=== PATIENT | male | born 1990 | race Caucasian/White ===

== ENCOUNTER 2017-01-10 22:07 | Emergency (ER) | payer OTHER ==
[~2017-01-10] VITALS: Ht 180.3 cm; Wt 70.3 kg
[~2017-01-10 22:07] MED LIST: PREDNISONE20 MG PO; PROAIR HFA8.5 GM INH; PROVENTIL HFA6.7 GM INH
[2017-01-11] MEDS ORDERED: TRAMADOL HCL50 MG PO (01:23)
[2017-01-11] MEDS ORDERED: CEPHALEXIN500 MG PO (01:23)
== END 2017-01-11 01:51 | disposition home or self-care (01) ==
LOC: ED 22:07
DX: K08.89 Other specified disorders of teeth and supporting structures (principal); J45.909 Unspecified asthma, uncomplicated; F17.200 Nicotine dependence, unspecified, uncomplicated
CPT/HCPCS: 99283

== ENCOUNTER 2017-02-26 14:37 | Emergency (ER) | payer OTHER ==
[~2017-02-26] VITALS: Ht 180.3 cm; Wt 68.0 kg
[~2017-02-26 14:37] MED LIST changes: +CEPHALEXIN500 MG PO; +TRAMADOL HCL50 MG PO
== END 2017-02-26 14:53 | disposition home or self-care (01) ==
LOC: ED 14:37
DX: R21 Rash and other nonspecific skin eruption (principal); Z00.8 Encounter for other general examination

== ENCOUNTER 2017-05-14 14:30 | Emergency (ER) | payer SELFPAY ==
[~2017-05-14] VITALS: Ht 177.8 cm; Wt 68.0 kg
[2017-05-14] MEDS ORDERED: VENTOLIN HFA18 GM INH (14:43)
== END 2017-05-14 14:50 | disposition home or self-care (01) ==
LOC: ED 14:30
DX: K08.89 Other specified disorders of teeth and supporting structures (principal)

== ENCOUNTER 2024-01-01 11:21 | Emergency (ER) | payer MEDICAID ==
[~2024-01-01] VITALS: Ht 180.3 cm; Wt 82.3 kg
[~2024-01-01 11:21] MED LIST changes: +FLOVENT HFA10.6 GM INH; +TRIAMCINOLONE A15 G1 TOP; +VENTOLIN HFA18 GM INH
--- OUTSIDE RECORDS SUMMARY | 2024-01-01 11:22 | XMS ---
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 Adalberto VISIT COUNT (12 MO.) 4 [facility] [address] [place] [address] Edilma Burgess M.[facility] TOTAL 6 NOTE: Visits indicate total known visits. ED/UCC VISIT TRACKING (12 MO.) 01/01/2024 11:21 TAYLA Mc [place] TYPE: Emergency COMPLAINT: - SKIN PROBLEM 12/16/2023 23:39 Edilma BURGESS OR TYPE: Emergency DIAGNOSES: - Mild intermittent asthma with (acute) exacerbation - Shortness of Breath - SOB 12/01/2023 14:43 Sherwin AGUSTIN OR TYPE: Emergency DIAGNOSES: - Unspecified asthma with (acute) exacerbation - asthma - Shortness of Breath 09/26/2023 16:49 Sherwin [facility] TYPE: Emergency DIAGNOSES: - Unspecified asthma with (acute) exacerbation - Shortness of Breath - sob 09/25/2023 17:26 Sherwin [facility] TYPE: Emergency DIAGNOSES: - Unspecified asthma with (acute) exacerbation - Asthma - Shortness of Breath 2023 07:27 Sherwin [facility] [place] TYPE: Emergency DIAGNOSES: - Chest pain, unspecified - Wheezing - rib pain INPATIENT VISIT TRACKING (12 MO.) 12/01/2023 14:43 Sherwin [facility] OR TYPE: Medical Surgical DIAGNOSES: - Unspecified asthma with (acute) exacerbation 09/26/2023 16:49 Sherwin [facility] TYPE: Cardiology DIAGNOSES: - Unspecified asthma with (acute) exacerbation [id number]
[2024-01-01] MEDS ORDERED: PULMICORT0.25 MG/2 INH (11:38)
[2024-01-01] MEDS ORDERED: PREDNISONE20 MG PO ×2 (11:38→13:21)
[2024-01-01] MEDS ORDERED: clindamycin HCL 300 MG CAP PO ONE (12:00)
[2024-01-01] MEDS ORDERED: predniSONE 20 MG TAB PO ONE (12:00)
[2024-01-01] MEDS ORDERED: TRIMETHOPRIM/SULFAMETHOXAZOLE 1 EA TAB PO ONE (12:00)
[2024-01-01] MEDS ORDERED: ALBUTEROL/IPRATROPIUM 3 ML NEB INH ONE (12:00)
[2024-01-01] MEDS ORDERED: BACTRIM DS TAB1 EACH PO (13:21)
[2024-01-01] MEDS ORDERED: VENTOLIN HFA18 GM INH (13:21)
[2024-01-01] MEDS ORDERED: CLEOCIN HCL300 MG PO (13:21)
[2024-01-01 13:33] VITALS: BP 136/98
[2024-01-11] MEDS ORDERED: PREDNISONE20 MG PO (11:02)
[2024-01-11] MEDS ORDERED: VENTOLIN HFA18 GM INH (11:04)
[2024-01-11] MEDS ORDERED: PULMICORT0.25 MG/2 INH (11:05)
== END 2024-01-01 13:33 | disposition home or self-care (01) ==
LOC: ED 11:21
DX: L30.9 Dermatitis, unspecified (principal); J45.901 Unspecified asthma with (acute) exacerbation; L08.9 Local infection of the skin and subcutaneous tissue, unspecified; F17.200 Nicotine dependence, unspecified, uncomplicated; Z79.51 Long term (current) use of inhaled steroids; Z79.52 Long term (current) use of systemic steroids; Z79.899 Other long term (current) drug therapy
CPT/HCPCS: 94640; 99284; A9270; J7512

== ENCOUNTER 2024-01-15 21:01 | Inpatient (IN) | payer MEDICAID ==
[~2024-01-15] VITALS: Ht 180.3 cm; Wt 88.0 kg
[~2024-01-15 21:01] MED LIST changes: +ALBUTEROL/IPRATROPIUM 3 ML NEB INH SCH; +BACTRIM DS TAB1 EACH PO; +CLEOCIN HCL300 MG PO; +PULMICORT0.25 MG/2 INH
--- OUTSIDE RECORDS SUMMARY | 2024-01-15 21:03 | XMS ---
PreManage Notification: MARIA GUADALUPE NEVAREZ Security Unbundler Events No recent Security Events currently on file CRITERIA MET - 6 ED Visits in 6 Months - Group Notification - [facility] - 2 Visits in 30 Days - [facility] - 3 Facilities in 90 Days CARE PROVIDERS [facility], Clinic[facility]Center: [facility] PHONE: Unknown Kendall has no Care Guidelines for this patient. E.Eleni VISIT COUNT (12 MO.) 4 [facility] TOTAL 8 NOTE: Visits indicate total known visits. ED/UCC VISIT TRACKING (12 MO.) 01/15/2024 21:02 TAYLA Mc OR TYPE: Emergency COMPLAINT: - SOB 01/10/2024 18:56 TAYLA Mc OR TYPE: Emergency COMPLAINT: - SHORTNESS OF BREATH 01/01/2024 11:21 TAYLA Mc OR TYPE: Emergency COMPLAINT: - SKIN PROBLEM DIAGNOSES: - Dermatitis, unspecified - Local infection of the skin and subcutaneous tissue, unspecified - terminal press operator (current) use of inhaled steroids - care home (current) use of systemic steroids - Nicotine dependence, unspecified, uncomplicated - Other alf (current) drug therapy - Rash and other nonspecific skin eruption - Unspecified asthma with (acute) exacerbation 12/16/2023 23:39 Edilma [facility]GESS [facility] TYPE: Emergency [...] rib pain INPATIENT VISIT TRACKING (12 MO.) 01/10/2024 21:30 TAYLA Mc [place] TYPE: Medical Surgical COMPLAINT: - ASTHMA EXACERBATION DIAGNOSES: - Acquired absence of other specified parts of digestive tract - Allergic rhinitis, unspecified - terminal press operator (current) use of antibiotics - Nicotine dependence, cigarettes, uncomplicated - Other alf (current) drug therapy - Psoriasis, unspecified - Unspecified asthma with (acute) exacerbation 12/01/2023 14:43 [facility] TYPE: Medical Surgical DIAGNOSES: - Unspecified asthma with (acute) exacerbation 09/26/2023 16:49 Sherwin [facility] TYPE: Cardiology DIAGNOSES: - Unspecified asthma with (acute) exacerbation [id number]
[2024-01-15 21:10] LABS: BASOPHILS 0.8 % (0-2); EOSINOPHILS 3.7 % (0-6); HEMATOCRIT 46.4 % (35.0-50.0); HEMOGLOBIN 16.1 g/dL (12.0-18.0); MCH 31.2 (27-36); MCHC 34.8 g/dl (30-36); MCV 89.9 fl (81-99); MONOCYTES 10.2 % (0-12); NEUTROPHILS 51.3 % (39-80); PLATELET COUNT 337 K/uL (140-440); RBC 5.16 M/ul (4.3-5.7)
[2024-01-15] MEDS ORDERED: ALBUTEROL SULFATE 0.5% 2.5 MG/0.5 ML VIAL INH ONE (21:15)
[2024-01-15 21:25] LABS: ALBUMIN 4.1 g/dL (3.4-5.0); ALBUMIN/GLOBULIN RATIO 1.08 (1.1-2.4); ANION GAP 13.1 (7-21); BILIRUBIN, TOTAL 0.3 ng/dL (0.2-1.0); BUN/CREATININE RATIO 15.38 (6.0-28.6); CALCIUM 9.4 mg/dL (8.5-10.1); CREATININE, SERUM 1.04 mg/dL (0.70-1.30); POTASSIUM 4.1 mmol/L (3.5-5.1); PROTEIN, TOTAL 7.9 g/dL (6.4-8.2)
[2024-01-15] MEDS ORDERED: methylPREDNISolone SOD SUCC 125 MG/2 ML VIAL IV ONE (22:00)
[2024-01-15 23:11] VITALS: BP 147/94
[2024-01-15 23:15] VITALS: BP 149/86
[2024-01-15] MEDS ORDERED: ALBUTEROL SULFATE 0.083% 3 ML VIAL INH PRN (23:15)
[2024-01-15] MEDS ORDERED: ALBUTEROL/IPRATROPIUM 3 ML NEB ONE (23:17)
[2024-01-15] MEDS ORDERED: MELATONIN 3 MG TAB PO ONE (23:45)
--- NOTE | 2024-01-15 23:51 | NUR ---
PT TO FLOOR WITH ED RN VIA AT APPROX 2310. PT ALERT AND ORIENTED. ABLE TO TRANSFER SELF TO BED. BEDSIDE REPORT RECEIVED. ORDERS RECEIVED. VS OBTAINED. CPOX PLACED. SpO2 99% ON RA. RR 18. DRY COUGH NOTED. WHEEZE AUSCULTATED THROUGHOUT. RT IN FOR BREATHING TX. PT REQUESTING SOMETHING FOR SLEEP. CALLED. NEW TELEPHONE ORDERS RECEIVED VERIFIED WITH READBACK METHOD. SANDWICH BOX PROVIDED PER REQUEST. TO STAY THE NIGHT. LINENS PROVIDED. PT DENIES QUESTIONS OR CONCERNS. CALL LIGHT IN REACH.
[2024-01-16] VITALS (11 sets, daily range): BP systolic 138–149; BP diastolic 77–88
--- NOTE | 2024-01-16 02:40 | NUR ---
PT RESTING WITH EYES CLOSED. AWAKENS EASILY. VS AND I&O OBTAINED. SpO2 95% ON RA. RESPIRATIONS EVEN. DRY COUGH NOTED. WHEEZE HEARD THROUGHOUT. PT REPORTS SOB. PRN NEB TX ADMIN PER EMAR. NEW IV PLACED IN RIGHT FOREARM PER PT REQUEST. PT CONNOR WELL. IV IN LEFT FOREARM DC'D WNL PER PT REQUEST. TIP INTACT. NO FURTHER NEEDS. CALL LIGHT IN REACH.
--- NOTE | 2024-01-16 04:30 | NUR ---
PT RESTING IN BED WITH EYES CLOSED. RESPIRATIONS EVEN. SpO2 96% ON RA. HR 80'S.
[2024-01-16] MEDS ORDERED: methylPREDNISolone SOD SUCC 40 MG/ML VIAL IV SCH (06:00)
--- NOTE | 2024-01-16 06:26 | NUR ---
PT RESTING IN BED WITH EYES CLOSED. AWAKENS EASILY. VS AND I&O OBTAINED. NEW IV PLACED IN RIGHT FOREARM X 1 ATTEMPT PT ACCIDENTALLY PULLED PREVIOUS ONE. SCHEDULED MEDS ADMIN. PT REPORTS FEELING "LESS WHEEZY, BUT STILL TIGHT" OCCASIONAL DRY COUGH NOTED. RT IN ROOM TO ADMIN NEB TX. NO FURTHER NEEDS. REMAINS IN ROOM. CALL LIGHT IN REACH.
[2024-01-16 06:56] LABS: BASOPHILS 0.2 % (0-2); HEMOGLOBIN 15.2 g/dL (12.0-18.0); LYMPHOCYTES 3.2 % (24-44); MCH 30.6 (27-36); MCHC 33.8 g/dl (30-36); MCV 90.4 fl (81-99); MONOCYTES 1.2 % (0-12); NEUTROPHILS 95.4 % (39-80); PLATELET COUNT 304 K/uL (140-440); RBC 4.97 M/ul (4.3-5.7); RDW 13.8 (10.5-15.0)
[2024-01-16 07:07] LABS: ANION GAP 19.5 (7-21); BUN/CREATININE RATIO 12.59 (6.0-28.6); CALCIUM 8.9 mg/dL (8.5-10.1); CREATININE, SERUM 1.27 mg/dL (0.70-1.30); MAGNESIUM 2.2 mg/dL (1.8-2.4); POTASSIUM 4.5 mmol/L (3.5-5.1)
--- NOTE | 2024-01-16 07:51 | NUR ---
Previous hospitalization was placed on list and clinic notified of need for PCP. No appointment made by clinic. Chart resent and clinic renotified via email this AM of need for PCP to help prevent hospitalizations.
--- NOTE | 2024-01-16 07:59 | NUR ---
PT RESTING EYES CLOSED AT TIME OF SHIFT REPORT, ON THE COUCH. PT AWAKE NOW, TALKING WITH HOSPITALIST.
[2024-01-16] MEDS ORDERED: ALBUTEROL/IPRATROPIUM 3 ML NEB INH SCH (08:00)
[2024-01-16] MEDS ORDERED: ACETAMINOPHEN 325 MG TAB PO PRN (08:15)
--- NOTE | 2024-01-16 08:21 | NUR ---
PT SITTING UP IN BED EATING MORNING MEAL DENIES NEEDS OF. PT AGREES ALL HIS QUESTIONS WERE ANSWERED BY DOCTOR.
--- NOTE | 2024-01-16 09:02 | NUR ---
PT TOLERATES BREAKFAST WELL SITTING UP IN BED. DENIES SOB, BREATHING EVEN AND UNLABORED SATS 95% ON RA. TYLENOL ADMINISTERED EARLIER FOR BAUMAN 11/18 RATES IT 05/21 NOW STATES "ITS STARTING TO WORK" PT AGREES TO CALL STAFF FOR INCREASED WORK OF BREATHING OR ANY NEEDS OR CONCERNS
--- NOTE | 2024-01-16 10:15 | NUR ---
PT RESTING EYES CLOSED
[2024-01-16] MEDS ORDERED: VENTOLIN HFA18 GM INH (10:21)
--- NOTE | 2024-01-16 12:36 | NUR ---
PT EATS MOST OF NOON MEAL. HE'S TALKATIVE AND UPBEAT, DENIES ANY DISCOMFORTS OR NEEDS. SATS 94% ON ROOM AIR. GIRLFRIEND REMAINS AT BEDSIDE
--- NOTE | 2024-01-16 12:44 | NUR ---
Patient was alert and visiting with their . Lunch tray was removed and no other cares were requested.
--- NOTE | 2024-01-16 12:44 | NUR ---
PATIENT LIVES IN A HOUSE WITH HIS FIANCE. NO DME. STATES HE DOES NOT DRIVE, FIANCE OR [place] FOR MEDICAL APPOINTMENTS. SHOULD HAVE HIS LICENSE IN A COUPLE OF MONTHS, PER PATIENT. NO PCP, SEE PREVIOUS CM NOTE. NO FINANCIAL ISSUES. DENIES ANY OTHER NEEDS FROM CASE MANAGEMENT AT THIS TIME. INFORMED STAFF WILL UPDATE HIM REGARDING PCP SOON AN APPOINTMENT IS MADE. VERBALIZES UNDERSTANDING.
--- NOTE | 2024-01-16 12:58 | NUR ---
VISITED DURING SPIRITUAL CARE ROUNDS. PT SUPPORTED BY CONVENTION MANAGER IN ROOM. BOTH DENIED IMMEDIATE NEEDS. HARVEST CONTRACTOR PROVIDED SUPPORTIVE PRESENCE, HOSPITALITY, PRAYER. PT AND CONVENTION MANAGER EXPRESSED GRATITUDE.
--- NOTE | 2024-01-16 13:10 | NUR ---
Patient called asking for a new SpO2 finger monitor. is in the room visiting. Nothing else was requested.
--- NOTE | 2024-01-16 14:25 | NUR ---
PT AMBULATES THE HERRERA THEN RETURNS TO REST IN BED. STATES HE HAD PLANNED TO SHOWER AFTERWARD BUT HE BECAME SOB AND SWEATY SO DECIDED TO REST FOR A TIME. SATS ARE 94% ON ROOM AIR AT THIS TIME BREATHING EVEN AND UNLABORED
--- NOTE | 2024-01-16 14:28 | NUR ---
After finishing their breathing treatment, patient's vitals were taken and fresh ice was given to the patient's . Nurse was in room working. No other cares were requested.
--- NOTE | 2024-01-16 15:59 | NUR ---
Urinal was used and emptied. No other cares were requested.
--- NOTE | 2024-01-16 16:18 | NUR ---
PT RESTING EYES CLOSED NEEDED ITEMS IN REACH
--- NOTE | 2024-01-16 17:53 | NUR ---
PT RESTING SUPINE AFTER EVENING MEAL GIRLFRIEND PRESENT IN THE ROOM. BREATHING EVEN AND UNLABORED DENIES NEEDS OF
[2024-01-16] MEDS ORDERED: steroid inhaler (18:02)
--- NOTE | 2024-01-16 19:34 | NUR ---
REPORT RECEIVED FROM DAY SHIFT RN. PT LYING IN BED ALERT AND ORIENTED. DENIES NEEDS. WHITE BOARD UPDATED. CALL LIGHT IN REACH.
[2024-01-16] MEDS ORDERED: MELATONIN 3 MG TAB PO PRN (21:00)
--- NOTE | 2024-01-16 21:30 | NUR ---
EVENING ASSESSMENT COMPLETE. SCHEDULED MEDS ADMIN PER EMAR. PT DENIES PAIN OR NAUSEA. NO C/O SOB, STATES "IT JUST FEELS TIGHT" OCCASIONAL DRY COUGH NOTED. EXPIRATORY WHEEZE HEARD THROUGHOUT. RT CALLED FOR BREATHING TX. SpO2 MID TO HIGH 90'S ON RA. PT DENIES FURTHER NEEDS. TO STAY THE NIGHT. CALL LIGHT IN REACH.
[2024-01-17] VITALS (10 sets, daily range): BP systolic 125–157; BP diastolic 57–88
--- NOTE | 2024-01-17 00:24 | NUR ---
PT RESTING IN BED WITH EYES CLOSED. RESPIRATIONS EVEN. SpO2 96% ON RA. HR 80'S. IN ROOM. CALL LIGHT IN REACH.
--- NOTE | 2024-01-17 02:49 | NUR ---
PT RESTING IN BED WITH EYES CLOSED. RESPIRATIONS EVEN. HR 80'S. SpO2 96% ON RA.
--- NOTE | 2024-01-17 04:15 | NUR ---
PT IN BED RESTING WITH EYES CLOSED. SpO2 94% ON RA. HR 80'S.
[2024-01-17 05:55] LABS: BASOPHILS 0.2 % (0-2); HEMATOCRIT 45.4 % (35.0-50.0); LYMPHOCYTES 2.6 % (24-44); MCH 30.1 (27-36); MCV 91.3 fl (81-99); MONOCYTES 5.4 % (0-12); NEUTROPHILS 91.8 % (39-80); PLATELET COUNT 304 K/uL (140-440); RBC 4.97 M/ul (4.3-5.7); RDW 14.1 (10.5-15.0)
[2024-01-17 06:14] LABS: ANION GAP 13.1 (7-21); BUN/CREATININE RATIO 17.34 (6.0-28.6); CALCIUM 9.6 mg/dL (8.5-10.1); CREATININE, SERUM 0.98 mg/dL (0.70-1.30); POTASSIUM 4.1 mmol/L (3.5-5.1)
--- NOTE | 2024-01-17 06:25 | NUR ---
CALL LIGHT ANSWERED. PT REQUESTING BREATHING TX. RT NOTIFIED. AUDIBLE WHEEZE AND DRY COUGH NOTED. SpO2 95% ON RA. RESPIRATIONS EVEN. PT ABLE TO TALK IN FULL SENTENCES. SCHEDULED MEDS ADMIN PER EMAR. AT BEDSIDE. NO FURTHER NEEDS.
--- NOTE | 2024-01-17 07:20 | NUR ---
PT AWAKE RESTING IN BED AT TIME OF SHIFT REPORT. HE STATES HE WOKE UP EARLIER SOB AND NEB "DIDN'T HELP" LUNGS WERE CLEAR IN UPPER YESTERDAY BUT WHEEZY THROUGHOUT TODAY. PT BREATHING AND UNLABORED AT THIS TIME SATS 95% ON RA. AT BEDSIDE
--- NOTE | 2024-01-17 08:02 | NUR ---
PATIENT IN BED AT THIS TIME. CALL LIGHT WITHIN REACH, NO FURTHER NEEDS AT THIS TIME.
[2024-01-17] MEDS ORDERED: methylPREDNISolone SOD SUCC 125 MG/2 ML VIAL IV SCH ×2 (09:00→17:00)
[2024-01-17] MEDS ORDERED: ENOXAPARIN SODIUM 40 MG/0.4 ML SYR SUB-Q SCH (09:00)
--- NOTE | 2024-01-17 09:08 | NUR ---
REVIEWED PLAN OF CARE WITH PT UNDERSTANDING VERBALIZED. HE HAD A GOOD BREAKFAST PLANS TO SHOWER AND AMBULATE TOLERATED LATER. RESTING NOW EYES CLOSED
--- NOTE | 2024-01-17 09:33 | NUR ---
UR CLINICAL REVIEW: [facility] INPT CRITERIA FOR ASTHMA ALL CARE INPT 01/16/24 @ 1244 ORDER MATCHES REG RECORDS FAXED FOR AUTH REVIEW DISCHARGE TO HOME WHEN STABLE 01/18/24
--- NOTE | 2024-01-17 10:52 | NUR ---
PT SITTING UP IN BED EATING A MEAL WITH HIS . BREATHING EVEN AND UNLABORED SATS 94% ON RA. PT COUGH SOUNDS TIGHT AND DRY. HE HAS NO C/O. PLANS TO SHOWER THIS AFTERNOON.
--- NOTE | 2024-01-17 10:53 | NUR ---
PT NOT AVAILBLE FOR VISIT. PROVIDED PRAYER.
[2024-01-17] MEDS ORDERED: PHARMACY RENAL DOSE ADJUSTMENT 1 DOSE MISC PO SCH (12:00)
--- NOTE | 2024-01-17 12:20 | NUR ---
PATIENT IN BED AT THIS TIME. PLAYBACK OPERATOR WENT INTO ROOM FOR PATIENT ROUINDINGS. CALL LIGHT WITHIN REACH, NO FURTHER NEEDS AT THIS TIME.
--- NOTE | 2024-01-17 12:26 | NUR ---
PT RESTING EYES CLOSED IS PRESENT IN THE ROOM
--- NOTE | 2024-01-17 14:39 | NUR ---
PT AND CONTINUE IN THE ROOM, BLINDS DRAWN RESTING SUPINE. PT HAS BEEN ENCOURAGED TO SIT UP IN CHAIR, WALK IN HALLS, SHOWER, AND CHANGE POSITION FREQUENTLY. UNDERSTANDING WAS VERBALIZED.
--- NOTE | 2024-01-17 15:57 | NUR ---
PATIENT IN BED AT THIS TIME. LINE MAINTENANCE TECHNICIAN WENT INTO ROOM TO DO PATIENT ROUNDINGS. RESPIRATORY THERAPIST IN ROOM AT THIS TIME. CALL LIGHT WITHIN REACH, NO FURTHER NEEDS AT THIS TIME.
[2024-01-17] MEDS ORDERED: ALBUTEROL SULFATE 0.5% 2.5 MG/0.5 ML VIAL ONE (16:01)
--- NOTE | 2024-01-17 16:01 | NUR ---
PT REPORTS TO THIS INSET CUTTER THAT HE FEELS HE IS GETTING WORSE AND WOULD LIKE TO DC AND THEN GO TO [facility] TO SEE A SPECIALIST. R/T CALLED FOR TREATMENT AND DR MCGILL NOTIFIED OF PT STATEMENTS. R/T AND DR MCGILL MEET TO COORIDNATE CARE. DR ESTRADA TO PT ROOM
[2024-01-17] MEDS ORDERED: ALBUTEROL SULFATE 0.5% 2.5 MG/0.5 ML VIAL INH ONE (16:30)
[2024-01-17] MEDS ORDERED: MAGNESIUM SULFATE 2 GM/50 ML BAG IV ONE (16:30)
--- NOTE | 2024-01-17 16:45 | NUR ---
PT AGREES TO 1 HR LONG NEB WELL MAG INFUSION. R/T REPORTS BETTER AIR MOVEMENT AFTER NEB, PT AGREES HE FEELS "A LITTLE" BETTER. SATS HAVE REMAINED AROUND 95% SINCE FIRST C/O SOB. IV SITE IS ACHING WITH INFUSION NEW LINE IS BEING PUT IN AT THIS TIME.
--- NOTE | 2024-01-17 16:50 | NUR ---
DR MCGILL BACK TO ROOM REPORTS TO THE PT HE SPOKE WITH A FIELD EDUCATION DIRECTOR TO COORDINATE CARE AND INQUIRE ABOUT TRANSFER. HE ADVISED HE WILL INCREASE STEROIDS AGAIN ON ADVISE OF FIELD EDUCATION DIRECTOR AND PURSUE TRANSFER ALONG WITH BRONCHODIALATORS. PT IS IN AGREEMENT ALL QUESTIONS ANSWERED
--- NOTE | 2024-01-17 17:50 | NUR ---
PT REPORTS HEADACHE AND TYLENOL ADMINISTERED. CHECKING BACK PT STATES HIS HEAD STILL HURTS. DESCRIBES THE PAIN UPPER NOSE AND EYE ORBIT NEAR BROWS. WARM PACK APPLIED. PT AGREES BREATHING IS BETTER AT THIS TIME. SATS CONTINUE AT 95% BREATHING UNLABORED. NO TRANSFER IS AVAILABLE AT THIS TIME PT NOTIFIED NEBS WILL CONTINUE Q2 FOR NOW
--- NOTE | 2024-01-17 18:00 | NUR ---
CALLED FOR EXTERNAL TRANSFER REQUEST BY DR. MCGILL. [facility], [facility], [facility] AND [facility] HAVE DECLINED. [facility] WAITLISTED AND WAITING ON A CALL BACK FROM [facility]. AND PRIMARY NURSE INFORMED.
--- NOTE | 2024-01-17 18:12 | NUR ---
PATIENT IN BED AT THIS TIME. WATERPROOF BAG SEWER WENT INTO PATIENT ROOM FOR PATIENT ROUNDINGS. VITALS AND I&O'S CHARTED. CALL LIGHT WITHIN REACH, NO FURTHER NEEDS AT THIS TIME.
--- NOTE | 2024-01-17 19:19 | NUR ---
REPORT RECEIVED FROM DAY SHIFT RN. PT LYING IN BED ALERT AND ORIENTED. DENIES NEEDS. AT BEDSIDE. WHITE BOARD UPDATED. CALL LIGHT IN REACH.
--- NOTE | 2024-01-17 21:09 | NUR ---
EVENING ASSESSMENT COMPLETE. PT DENIES PAIN OR NAUSEA. REPORTS SOB. SpO2 MID 90'S ON RA. HR ONE TEENS. RESPIRATIONS EVEN. DRY COUGH NOTED. ALL LUNG TO DIMINISHED WITH WHEEZE HEARD THROUGHOUT. BATH WIPES PROVIDED FOR SPONGE BATH. TO ASSIST. NO FURTHER NEEDS AT THIS TIME. CALL LIGHT IN REACH.
--- NOTE | 2024-01-17 21:35 | NUR ---
2057 CALL TO [facility] FOR TRANSPORT OF PATIENT TO [facility]. 2216 RECEIVED CALL BACK FROM [place] WITH [facility], UNABLE TO TRANSPORT UNTIL 72901/18/24. 2122 CALL TO [facility] FOR TRANSPORT 2125 MARK FROM [facility] CALLS BACK TO CONFIRM ABLE TO TRANSPORT PATIENT ALS TO [facility] WITH AN ETA OF APPROX. 1HR.
--- NOTE | 2024-01-17 22:10 | NUR ---
REPORT CALLED TO OLMAN AT [facility].
--- NOTE | 2024-01-17 23:07 | NUR ---
EMS TRANSPORT ARRIVED. REPORT GIVEN. PT OFF THE UNIT 3551. PERSONAL BELONGINGS WITH WHO IS FOLLOWING EMS TO [facility].
== END 2024-01-17 23:02 | disposition short-term general hospital (02) | DRG 203 ==
LOC: ED 21:01 → MS 21:03
PROVIDERS: Emergency Medicine; ADMIT Student in an Organized Health Care Education/Training Program; ATTEND Student in an Organized Health Care Education/Training Program
DX: J45.901 Unspecified asthma with (acute) exacerbation (principal); F17.210 Nicotine dependence, cigarettes, uncomplicated; Z90.49 Acquired absence of other specified parts of digestive tract; L40.9 Psoriasis, unspecified; Z79.52 Long term (current) use of systemic steroids; Z79.51 Long term (current) use of inhaled steroids
CPT/HCPCS: 36415; 71045; 80048; 80053; 83735; 85025; 85060; 94640; 94644; 96376; A9270; G0378; J1650; J2919; J3475

== ENCOUNTER 2024-06-19 19:02 | Emergency (ER) | payer OTHER ==
[~2024-06-19] VITALS: Ht 177.8 cm; Wt 89.0 kg
[~2024-06-19 19:02] MED LIST changes: -ALBUTEROL/IPRATROPIUM 3 ML NEB INH SCH; +steroid inhaler
--- OUTSIDE RECORDS SUMMARY | 2024-06-19 19:09 | XMS ---
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 E.DJanel VISIT COUNT (12 MO.) 4 TAYLA Rice 3 [facility]win D[facility]az M[facility] 1 Edilma Burgess M.C. TOTAL 8 NOTE: Visits indicate total known visits. ED/C VISIT TRACKING (12 MO.) 06/19/2024 19:03 T[facility]LA Mc [place] TYPE: Emergency COMPLAINT: - DENTAL PAIN/TROUBLE BREATHING 01/15/2024 21:02 TAYLA Mc [place] TYPE: Emergency COMPLAINT: - SOB 01/10/2024 18:56 TAYLA Mc [place] TYPE: Emergency COMPLAINT: - SHORTNESS OF BREATH 01/01/2024 11:[address] [facility] [place] TYPE: Emergency COMPLAINT: - SKIN PROBLEM DIAGNOSES: - Dermatitis, unspecified - Local infection of the skin and subcutaneous tissue, unspecified - dedicated intermodal truck driver (current) use of inhaled steroids - dedicated intermodal truck driver (current) use of systemic steroids - Nicotine dependence, unspecified, uncomplicated - Other dedicated intermodal truck driver (current) drug therapy - Rash and other [...] exacerbation - Asthma - Shortness of Breath INPATIENT VISIT TRACKING (12 MO.) 01/18/2024 02:58 [facility] TYPE: Internal Medicine DIAGNOSES: 03202. Unspecified asthma with (acute) exacerbation 50572. asthma exacerbation 70763. Unspecified asthma, uncomplicated 01/16/2024 12:44 TAYLA Mc [place] TYPE: Medical Surgical COMPLAINT: - ASTHMA EXAERBATION DIAGNOSES: - Acquired absence of other specified parts of digestive tract - dedicated intermodal truck driver (current) use of inhaled steroids - dedicated intermodal truck driver (current) use of systemic steroids - Nicotine dependence, cigarettes, uncomplicated - Psoriasis, unspecified - Unspecified asthma with (acute) exacerbation 01/10/2024 21:30 TAYLA Mc [facility] TYPE: Medical Surgical COMPLAINT: - ASTHMA EXACERBATION DIAGNOSES: - Acquired absence of other specified parts of digestive tract - Allergic rhinitis, unspecified - [facility] (current) use of antibiotics - Nicotine dependence, cigarettes, uncomplicated - Other dedicated intermodal truck driver (current) drug therapy - Psoriasis, unspecified - Unspecified asthma with (acute) exacerbation 12/01/2023 14:43 [facility] TYPE: Medical Surgical DIAGNOSES: - Unspecified asthma with (acute) exacerbation 09/26/2023 16:49 [facility] TYPE: Cardiology DIAGNOSES: - Unspecified asthma with (acute) exacerbation [id number]
[2024-06-19] MEDS ORDERED: ALBUTEROL/IPRATROPIUM 3 ML NEB INH ONE (19:30)
[2024-06-19 20:56] LABS: ALBUMIN 4.2 g/dL (3.4-5.0); ALBUMIN/GLOBULIN RATIO 1.27 (1.1-2.4); BILIRUBIN, TOTAL 0.2 mg/dL (0.2-1.0); BUN/CREATININE RATIO 18.88 (6.0-28.6); CALCIUM 9.1 mg/dL (8.5-10.1); CREATININE, SERUM 0.9 mg/dL (0.70-1.30); PROTEIN, TOTAL 7.5 g/dL (6.4-8.2)
[2024-06-19 21:17] LABS: INFLUENZA B NAA NEGATIVE (NEGATIVE); RESPIRATORY SYNCYTIAL VIR NAA NEGATIVE (NEGATIVE)
[2024-06-19] MEDS ORDERED: VENTOLIN HFA18 GM INH (21:34)
[2024-06-19] MEDS ORDERED: TRAMADOL HCL 50 MG HOME.PACK PO ONE (21:45)
[2024-06-19] MEDS ORDERED: AZITHROMYCIN 250 MG HOME.PACK PO ONE (21:45)
[2024-06-19] MEDS ORDERED: methylPREDNISolone 4 MG HOME.PACK PO ONE (21:45)
[2024-06-19 21:52] VITALS: BP 133/98
== END 2024-06-19 21:54 | disposition home or self-care (01) ==
LOC: ED 19:02
PROVIDERS: Family Medicine
DX: J45.901 Unspecified asthma with (acute) exacerbation (principal); F17.200 Nicotine dependence, unspecified, uncomplicated
CPT/HCPCS: 36415; 80053; 87502; 94640; 99285; A9270; U0002

== ENCOUNTER 2024-07-04 06:31 | Emergency (ER) | payer OTHER ==
[~2024-07-04] VITALS: Ht 177.8 cm; Wt 89.0 kg
--- OUTSIDE RECORDS SUMMARY | 2024-07-04 06:36 | XMS ---
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 E.DJanel VISIT COUNT (12 MO.) [address] [place] [address] Sherwin Díaz M.C[facility] 1 Edilma Burgess M.C. TOTAL 9 NOTE: Visits indicate total known visits. ED/UCC VISIT TRACKING (12 MO.) 07/04/2024 06:31 TAYLA Mc [place] TYPE: Emergency COMPLAINT: - DIFFICULTY BREATHING 06/19/2024 19:03 TAYLA Mc [place] TYPE: Emergency COMPLAINT: - DENTAL PAIN/TROUBLE BREATHING DIAGNOSES: - Nicotine dependence, unspecified, uncomplicated - Shortness of breath - Unspecified asthma with (acute) exacerbation 01/15/2024 21:[address] [facility] [place] TYPE: Emergency COMPLAINT: - SOB 01/10/2024 18:56 [facility] [place] [facility] [place] TYPE: Emergency COMPLAINT: - SHORTNESS OF BREATH 01/01/2024 11:21 [facility] [place] [facility] [place] TYPE: Emergency COMPLAINT: - SKIN PROBLEM DIAGNOSES: - Dermatitis, unspecified - Local infection of the skin and subcutaneous tissue, unspecified - chemistry tutor (current) use of inhaled steroids - chemistry tutor (current) use of systemic steroids - Nicotine dependence, unspecified, uncomplicated - Other crop specialist (current) drug therapy - Rash and other [...] INPATIENT VISIT TRACKING (12 MO.) 01/18/2024 02:58 [facility] TYPE: Internal Medicine DIAGNOSES: 83473. Unspecified asthma with (acute) exacerbation 53150. asthma exacerbation 70960. Unspecified asthma, uncomplicated 01/16/2024 12:44 TAYLA Mc [place] TYPE: Medical Surgical COMPLAINT: - ASTHMA EXAERBATION DIAGNOSES: - Acquired absence of other specified parts of digestive tract - correction (current) use of inhaled steroids - correction (current) use of systemic steroids - Nicotine dependence, cigarettes, uncomplicated - Psoriasis, unspecified - Unspecified asthma with (acute) exacerbation 01/10/2024 21:30 T[facility] Mc [facility] TYPE: Medical Surgical COMPLAINT: - ASTHMA EXACERBATION DIAGNOSES: - Acquired absence of other specified parts of digestive tract - Allergic rhinitis, unspecified - chemistry tutor (current) use of antibiotics - Nicotine dependence, cigarettes, uncomplicated - Other crop specialist (current) drug therapy - Psoriasis, unspecified - Unspecified asthma with (acute) exacerbation 12/01/2023 14:43 [facility] TYPE: Medical Surgical DIAGNOSES: - Unspecified asthma with (acute) exacerbation 09/26/2023 16:49 [facility] TYPE: Cardiology DIAGNOSES: - Unspecified asthma with (acute) exacerbation [id number]
[2024-07-04] MEDS ORDERED: ALBUTEROL/IPRATROPIUM 3 ML NEB INH ONE (06:45)
[2024-07-04] MEDS ORDERED: DEXAMETHASONE SOD PHOS 10 MG/ML VIAL IM ONE (06:45)
[2024-07-04] MEDS ORDERED: BUDESONIDE 0.5 MG/2 ML VIAL INH ONE (06:45)
[2024-07-04] MEDS ORDERED: PULMICORT0.5 MG/2 M INH (07:10)
[2024-07-04] MEDS ORDERED: IPRAT-ALBUT 0.5-3 ML INH (07:10)
[2024-07-04] MEDS ORDERED: methylPREDNISolone 4 MG HOME.PACK PO ONE (07:15)
[2024-07-04 07:25] VITALS: BP 163/108
== END 2024-07-04 07:25 | disposition home or self-care (01) ==
LOC: ED 06:31
DX: J45.901 Unspecified asthma with (acute) exacerbation (principal); F17.200 Nicotine dependence, unspecified, uncomplicated
CPT/HCPCS: 94640; 96372; 99284; J1100

== ENCOUNTER 2024-07-10 06:08 | Inpatient (IN) | payer OTHER ==
[~2024-07-10] VITALS: Ht 177.8 cm; Wt 91.3 kg
[~2024-07-10 06:08] MED LIST changes: +IPRAT-ALBUT 0.5-3 ML INH; +PULMICORT0.5 MG/2 M INH
--- OUTSIDE RECORDS SUMMARY | 2024-07-10 06:14 | XMS ---
PreManage Notification: MARIA GUADALUPE NEVAREZ Security Cigarette Tester Events No recent Security Events currently on file CRITERIA MET - Group Notification - [facility] - 2 Visits in 30 Days CARE PROVIDERS -, [facility]ist: Facilities Plant Engineer Current [place] PHONE: [phone] TREMAYNE GORE Physician Account Resolution Expert Current PHONE: [phone] Kendall has no Care Guidelines for this patient. E.DJanel VISIT COUNT (12 MO.) [address] [place] [address] Sherwin D[facility]az M.C[facility] 1 Edilma Burgess M.C. TOTAL 10 NOTE: Visits indicate total known visits. ED/UCC VISIT TRACKING (12 MO.) 07/10/2024 06:08 [facility] Mc [facility] TYPE: Emergency COMPLAINT: - DIFFICULTY BREATHING 07/04/2024 06:31 T[facility] Mc [facility] TYPE: Emergency COMPLAINT: - DIFFICULTY BREATHING DIAGNOSES: - Nicotine dependence, unspecified, uncomplicated - Shortness of breath - Unspecified asthma with (acute) exacerbation 06/19/2024 19:03 TAYLA Mc [facility] TYPE: Emergency COMPLAINT: - DENTAL PAIN/TROUBLE BREATHING DIAGNOSES: - Nicotine dependence, unspecified, uncomplicated - Shortness of breath - Unspecified asthma with (acute) exacerbation 01/15/2024 21:02 TAY[facility] Mc [place] TYPE: Emergency COMPLAINT: - SOB 01/10/2024 18:56 [facility] Mc [facility] TYPE: Emergency COMPLAINT: - SHORTNESS OF BREATH 01/01/2024 11:21 [facility] Mc [facility] TYPE: Emergency COMPLAINT: - SKIN PROBLEM DIAGNOSES: - Dermatitis, unspecified - Local infection of the skin and subcutaneous tissue, unspecified - custodial (current) use of inhaled steroids - custodial (current) use of systemic steroids - Nicotine dependence, unspecified, uncomplicated - Other intermediate accountant (current) drug therapy - Rash and other [...] INPATIENT VISIT TRACKING (12 MO.) 01/18/2024 02:58 [facility] TYPE: Internal Medicine DIAGNOSES: 19286. Unspecified asthma with (acute) exacerbation 08138. asthma exacerbation 63555. Unspecified asthma, uncomplicated 01/16/2024 12:44 TAYLA Guillen TYPE: Medical Surgical COMPLAINT: - ASTHMA EXAERBATION DIAGNOSES: - Acquired absence of other specified parts of digestive tract - custodial (current) use of inhaled steroids - custodial (current) use of systemic steroids - Nicotine dependence, cigarettes, uncomplicated - Psoriasis, unspecified - Unspecified asthma with (acute) exacerbation 01/10/2024 21:30 [facility] Mc [place] TYPE: Medical Surgical COMPLAINT: - ASTHMA EXACERBATION DIAGNOSES: - Acquired absence of other specified parts of digestive tract - Allergic rhinitis, unspecified - custodial (current) use of antibiotics - Nicotine dependence, cigarettes, uncomplicated - Other intermediate accountant (current) drug therapy - Psoriasis, unspecified - Unspecified asthma with (acute) exacerbation 12/01/2023 14:43 [facility] TYPE: Medical Surgical DIAGNOSES: - Unspecified asthma with (acute) exacerbation 09/26/2023 16:49 [facility] TYPE: Cardiology DIAGNOSES: - Unspecified asthma with (acute) exacerbation [id number]
[2024-07-10] MEDS ORDERED: ALBUTEROL/IPRATROPIUM 3 ML NEB INH ONE ×2 (06:15→08:30)
[2024-07-10] MEDS ORDERED: ALBUTEROL SULFATE 0.5% 2.5 MG/0.5 ML VIAL INH ONE (06:30)
[2024-07-10] MEDS ORDERED: predniSONE 20 MG TAB PO ONE (06:30)
[2024-07-10] MEDS ORDERED: methylPREDNISolone SOD SUCC 125 MG/2 ML VIAL IV ONE (08:30)
[2024-07-10] MEDS ORDERED: SODIUM CHLORIDE 0.9% 1,000 ML IV PRN (08:45)
[2024-07-10 08:50] LABS: BASOPHILS 0.5 % (0-2); EOSINOPHILS 3.2 % (0-6); HEMATOCRIT 45.9 % (35.0-50.0); HEMOGLOBIN 15.5 g/dL (12.0-18.0); LYMPHOCYTES 17.2 % (24-44); MCH 28.4 (27-36); MCHC 33.8 g/dl (30-36); MCV 83.9 fl (81-99); NEUTROPHILS 75.1 % (39-80); PLATELET COUNT 265 K/uL (140-440); RBC 5.47 M/ul (4.3-5.7); RDW 13.6 (10.5-15.0)
[2024-07-10 08:59] LABS: ANION GAP 10.8 (7-21); BUN/CREATININE RATIO 19.1 (6.0-28.6); CALCIUM 9.2 mg/dL (8.5-10.1); CREATININE, SERUM 0.89 mg/dL (0.70-1.30); POTASSIUM 3.8 mmol/L (3.5-5.1)
[2024-07-10 10:10] LABS: CORONAVIRUS COVID-19 AG NEGATIVE (NEGATIVE); INFLUENZA A AG NEGATIVE (NEGATIVE); INFLUENZA B AG NEGATIVE (NEGATIVE)
[2024-07-10] MEDS ORDERED: ALBUTEROL SULFATE 0.083% 3 ML VIAL INH ONE (11:30)
[2024-07-10] MEDS ORDERED: ondansetron HCL 4 MG/2 ML VIAL IV PRN (12:00)
[2024-07-10] MEDS ORDERED: PHARMACY RENAL DOSE ADJUSTMENT 1 DOSE MISC PO SCH (12:00)
[2024-07-10] MEDS ORDERED: LACTATED RINGER'S 1,000 ML IV SCH (12:00)
[2024-07-10] MEDS ORDERED: ACETAMINOPHEN 325 MG TAB PO PRN (12:00)
[2024-07-10] MEDS ORDERED: MAGNESIUM SULFATE 2 GM/50 ML BAG IV ONE (12:15)
[2024-07-10 12:33] VITALS: BP 140/83
--- NOTE | 2024-07-10 12:59 | NUR ---
pt arrived to [facility] rm [facility] via wheelchair. report recieved from noni sharma. pt ambulated to bed, denies concerns. call light in reach. at bedside.
--- NOTE | 2024-07-10 14:34 | NUR ---
PT AWAKE IN BED, DENIES NEEDS. CALL LIGHT IN REACH.
--- NOTE | 2024-07-10 14:48 | NUR ---
MED REC COMPLETE
--- NOTE | 2024-07-10 15:32 | NUR ---
Hourly Rounding. Patient asked for a sandwhich box, lunch was documented on the I' and O's sheet. Sandwhich was given. No further requests from patient at this time
[2024-07-10] MEDS ORDERED: ALBUTEROL/IPRATROPIUM 3 ML NEB INH SCH (16:00)
[2024-07-10] MEDS ORDERED: BUDESONIDE 0.5 MG/2 ML VIAL INH SCH (16:00)
--- NOTE | 2024-07-10 16:20 | NUR ---
PT CURRENTLY RECIEVING A BREATHING TX. PT DENIES ANY DISCOMFORT. CALL LIGHT IN REACH
[2024-07-10] MEDS ORDERED: ALBUTEROL SULFATE 0.083% 3 ML VIAL INH PRN (16:30)
[2024-07-10] MEDS ORDERED: TRAZODONE HCL 50 MG TAB PO PRN (16:30)
--- NOTE | 2024-07-10 17:27 | NUR ---
PT LAYING IN BED, PT IS CURRENTLY EATING DINNER AT THIS TIME. PT HAS NO COMPLAINTS OR CONCERNS CALL LIGHT IS IN REACH.
--- NOTE | 2024-07-10 18:20 | NUR ---
PT LAYING IN BED, PT HAS NO CONCERNS AT THIS TIME, PT CALL LIGHT IN REACH.
[2024-07-10 18:26] VITALS: BP 167/78
[2024-07-10 18:29] VITALS: BP 167/78
--- NOTE | 2024-07-10 18:42 | NUR ---
PT REPORTED A HEADACHE, PT GIVEN TYLONOL PRN (SEE EMAR) . PT HAS NO OTHER CONCERNS AT THIS TIME AND HAS CALL LIGHT IN REACH.
--- NOTE | 2024-07-10 19:15 | NUR ---
REPORT RECEIVED FROM EM MARIE. PATIENT RESTING IN BED WITH FAMILY AT BEDSIDE. PATIENT DENIES ANY NEEDS AT THIS TIME. CALL LIGHT AND PERSONAL BELONINGS WITHIN REACH.
[2024-07-10 20:28] VITALS: BP 141/86
[2024-07-10 20:49] VITALS: BP 141/86
[2024-07-10] MEDS ORDERED: AMOXICILLIN 500 MG CAP PO SCH (21:00)
[2024-07-10] MEDS ORDERED: MELATONIN 3 MG TAB PO PRN (21:00)
--- NOTE | 2024-07-10 21:48 | NUR ---
PATIENT RESTING IN BED WITH EYES OPEN AND GIRLFRIEND RESTING ON THE COUCH. PATIENT DENIES ANY NEEDS AT THIS TIME. CALL LIGHT AND PERSONAL BELONGINGS WITHIN REACH.
--- NOTE | 2024-07-10 23:14 | NUR ---
call light answered, per primary rn request-this rn in room to hang new bag iv fluids. iv site wnl, fluids infusing as directed. pt reports voiding unmeasured void x1 and bm x1-documented on i&o's sheet-new sprite also given per request of pt. no additional needs or concerns, call light in reach.
--- NOTE | 2024-07-11 00:02 | NUR ---
PATIENT RESTING IN BED WITH EYES CLOSED. EVEN AND UNLABORED RESPIRATIONS NOTED. CALL LIGHT AND PERSONAL BELONINGS WITHIN REACH.
[2024-07-11 02:10] VITALS: BP 137/73
--- NOTE | 2024-07-11 02:14 | NUR ---
PATIENT RESTING IN BED WITH EYES CLOSED. PATIENT EYES OPENED WHEN THIS RN ENTERED ROOM. FOCUS ASSESSMENT COMPLETED. IV INFUSING AT 100ML/HR. URINAL DUMPED. PATIENT REPORTS HEADACHE "HAS GOTTEN BETTER" AND DENIES WANTING ANY MEDICATION FOR IT AT THIS TIME. PATIENT WITHOUT FURTHER NEEDS AT THIS TIME. CALL LIGHT AND PERSONAL BELONGINGS WITHIN REACH. VS STABLE.
--- NOTE | 2024-07-11 04:13 | NUR ---
PATIENT RESTING IN BED WITH EYES CLOSED. EVEN AND UNLABORED RESPIRATIONS NOTED. CALL LIGHT AND PERSONAL BELONGINGS WITHIN REACH.
[2024-07-11 05:35] LABS: BASOPHILS 0.3 % (0-2); EOSINOPHILS 0.7 % (0-6); HEMATOCRIT 39.8 % (35.0-50.0); HEMOGLOBIN 13.5 g/dL (12.0-18.0); LYMPHOCYTES 9.4 % (24-44); MCH 28.4 (27-36); MCV 83.7 fl (81-99); MONOCYTES 6.8 % (0-12); NEUTROPHILS 82.8 % (39-80); PLATELET COUNT 253 K/uL (140-440); RBC 4.75 M/ul (4.3-5.7); RDW 13.8 (10.5-15.0)
[2024-07-11 05:54] LABS: ALBUMIN 3.4 g/dL (3.4-5.0); ALBUMIN/GLOBULIN RATIO 1.17 (1.1-2.4); ANION GAP 11.6 (7-21); BILIRUBIN, TOTAL 0.3 mg/dL (0.2-1.0); BUN/CREATININE RATIO 16.12 (6.0-28.6); CALCIUM 8.5 mg/dL (8.5-10.1); CREATININE, SERUM 0.93 mg/dL (0.70-1.30); POTASSIUM 3.6 mmol/L (3.5-5.1); PROTEIN, TOTAL 6.3 g/dL (6.4-8.2)
[2024-07-11 05:57] VITALS: BP 134/72
[2024-07-11 05:58] VITALS: BP 134/72
--- NOTE | 2024-07-11 06:00 | NUR ---
PATIENT RESTING IN BED WITH EYES CLOSED. PATIENT OPENED EYES WHEN THIS RN ENTERED ROOM. VS TAKEN AND ARE STABLE. PATIENT WITHOUT FURTHER NEEDS AT THIS TIME. CALL LIGHT AND PERSONAL BELONGINGS WITHIN REACH.
--- NOTE | 2024-07-11 07:30 | NUR ---
REPORT RECEIVED FROM CUTTER OPERATOR HELPER RN. PATIENT RESTING IN BED WITH FAMILY AT BEDSIDE. IV SITE WNL. DENIES ANY NEEDS AT THIS TIME. CALL LIGHT WITHIN REACH.
--- NOTE | 2024-07-11 07:56 | NUR ---
Hourly rounding. Patient is up eating [employer] in bed. Partner is at bedside. Board has been updated Patient requested a soda, a soda was given. Urinal was emptied (300 ML) Documented on I's and O's log. No further request from patient. Call light has been placed within reach.
--- NOTE | 2024-07-11 08:10 | NUR ---
PATIENT RESTING IN BED AWAKE WATCHING TV. REPORTS HE FEELS SLIGHTLY SOB AT THIS TIME. LUNG SOUNDS NOTED WITH WHEEZING TO UPPER AND LOWER BILATERAL LOBES. PULSES INTACT. DENIES ANY PAIN AT THIS TIME. AM MEDICATIONS ADMINSTERED. EDUCATION PROVIDED ON STARTING PREDNISONE. EATING BREAKFAST AT THIS TIME. IV SITE PATENT. DENEIS ANY FURTHER NEEDS. CALL LIGHT WITHIN REACH.
[2024-07-11] MEDS ORDERED: predniSONE 20 MG TAB PO SCH (09:00)
--- NOTE | 2024-07-11 09:20 | NUR ---
Spoke with Filemon. He lives in [place] with his in an apartment. He works at [employer]. He has had prison asthma. He was seen in the ER recently and told to go to [employer] [facility] and metal pickling equipment operator a nebulizer. He drove to [facility] and they would not fill the order as the documentation was not complete. WE discussed [facility] [employer] does not deliver DME except 02. He is agreeable to use [facility] in [facility]. I contacted and they request orders, RX, notes. Their tractor trailer truck driver is in and not clear if they can deliver today. Pt denies other needs. He does not currently drive and is taking classes for [employer]. He has two classes left. He denies financial or safety concerns. Dr. Reid updated and he spoke with RT. Plan for pt to dc to day and have a treatment before he dcs. Chart was faxed to [facility] requesting delivery as soon as possible.
[2024-07-11] MEDS ORDERED: PREDNISONE20 MG PO (09:32)
--- NOTE | 2024-07-11 10:00 | NUR ---
UR CLINICAL REVIEW: MCG- ENCOUNTER INACTIVE UNABLE TO ADD GUIDELINES EOCRI INPT 07/10/24 @ 1200 ORDER MATCHES REG CLINICALS FAXED TO [facility] FOR AUTH REVIEW ANTICIPATE DISCHARGE TO HOME TODAY. 07/13/24
[2024-07-11 10:06] VITALS: BP 127/71
--- NOTE | 2024-07-11 10:19 | NUR ---
PATIENT RESTING IN BED WITH EYES CLOSED. RESPIRATIONS EVEN AND UNLABORED. CALL LIGHT WITHIN REACH.
[2024-07-11 10:20] VITALS: BP 127/71
--- NOTE | 2024-07-11 11:12 | NUR ---
Hourly Rounding. Patient is sitting in bed, no request.
[2024-07-11 11:54] VITALS: BP 123/74
--- NOTE | 2024-07-11 12:15 | NUR ---
PATIENT RESTING IN BED EATING LUNCH. RN DISCUSSED DISCHARGE EDUCATIONS WITH PATIENT. IV SITE REMOVED WNL.
== END 2024-07-11 12:34 | disposition home or self-care (01) | DRG 203 ==
LOC: ED 06:08 → MS 06:09 → ED 06:09 → MS 12:00
PROVIDERS: Emergency Medicine; ADMIT Student in an Organized Health Care Education/Training Program; ATTEND Student in an Organized Health Care Education/Training Program
DX: J45.41 Moderate persistent asthma with (acute) exacerbation (principal); L40.9 Psoriasis, unspecified; G47.00 Insomnia, unspecified; K02.9 Dental caries, unspecified; F17.210 Nicotine dependence, cigarettes, uncomplicated; Z90.49 Acquired absence of other specified parts of digestive tract; Z79.899 Other long term (current) drug therapy
CPT/HCPCS: 36415; 71045; 80048; 80053; 83036; 83735; 85025; 94640; 94760; A9270; J2919; J3475; J7030; J7121; J7512

== ENCOUNTER 2024-07-16 20:25 | Emergency (ER) | payer OTHER ==
[~2024-07-16] VITALS: Ht 177.8 cm; Wt 93.0 kg
[2024-07-16] MEDS ORDERED: ALBUTEROL/IPRATROPIUM 3 ML NEB INH ONE (20:30)
--- OUTSIDE RECORDS SUMMARY | 2024-07-16 20:31 | XMS ---
PreManage Notification: MARIA GUADALUPE NEVAREZ Security Missile Mechanic Events No recent Security Events currently on file CRITERIA MET - Group Notification - [facility] - 2 Visits in 30 Days CARE PROVIDERS -, [facility]ist: Moisture Tester Current [place] PHONE: [phone] TREMAYNE GORE Physician Environmental Engineering Aide Current PHONE: [phone] Kendall has no Care Guidelines for this patient. E.DJanel VISIT COUNT (12 MO.) [address] [place] [address] Sherwin Díaz M.C. 1 Edilma Burgess M.C. TOTAL 10 NOTE: Visits indicate total known visits. ED/UCC VISIT TRACKING (12 MO.) 07/16/2024 20:25 [facility] TYPE: Emergency COMPLAINT: - TROUBLE BREATHING 07/04/2024 06:31 [facility] TYPE: [...] the skin and subcutaneous tissue, unspecified - [facility] (current) use of inhaled steroids - paper cutter operator (current) use of systemic steroids - Nicotine dependence, unspecified, uncomplicated - Other halfway (current) drug therapy - Rash and other [...] of Breath INPATIENT VISIT TRACKING (12 MO.) 07/10/2024 12:00 [facility] [place] TYPE: Medical Surgical COMPLAINT: - ASTHMA EXACERBATION DIAGNOSES: - Acquired absence of other specified parts of digestive tract - Acquired absence of other specified parts of digestive tract - Dental caries, unspecified - Dental caries, unspecified - Insomnia, unspecified - Insomnia, unspecified - Moderate persistent asthma with (acute) exacerbation - Moderate persistent asthma with (acute) exacerbation - Nicotine dependence, cigarettes, uncomplicated - Nicotine dependence, cigarettes, uncomplicated - Other commercial pest control representative (current) drug therapy - Other halfway (current) drug therapy - Psoriasis, unspecified - Psoriasis, unspecified - Unspecified asthma, uncomplicated 01/18/2024 02:58 [facility] TYPE: Internal Medicine DIAGNOSES: 53134. Unspecified asthma with (acute) exacerbation 99308. asthma exacerbation 50522. Unspecified asthma, uncomplicated 01/16/2024 12:44 [facility] TYPE: Medical Surgical COMPLAINT: - ASTHMA EXAERBATION DIAGNOSES: - Acquired absence of other specified parts of digestive tract - [facility] (current) use of inhaled steroids - paper cutter operator (current) use of systemic steroids - Nicotine dependence, cigarettes, uncomplicated - Psoriasis, unspecified - Unspecified asthma with (acute) exacerbation 01/10/2024 21:30 [facility] TYPE: Medical Surgical COMPLAINT: - ASTHMA EXACERBATION DIAGNOSES: - Acquired absence of other specified parts of digestive tract - Allergic rhinitis, unspecified - [facility] (current) use of antibiotics - Nicotine dependence, cigarettes, uncomplicated - Other halfway (current) drug therapy - Psoriasis, unspecified - Unspecified asthma with (acute) exacerbation 12/01/2023 14:43 [facility] TYPE: Medical Surgical DIAGNOSES: - Unspecified asthma with (acute) exacerbation 09/26/2023 16:49 [facility] TYPE: Cardiology DIAGNOSES: - Unspecified asthma with (acute) exacerbation [id number]
[2024-07-16] MEDS ORDERED: DUPIXENT P300 MG/2 M SQ (20:34)
[2024-07-16] MEDS ORDERED: OMEPRAZOLE20 MG PO (22:55)
[2024-07-16 22:58] VITALS: BP 135/97
== END 2024-07-16 22:58 | disposition home or self-care (01) ==
LOC: ED 20:25
DX: J45.901 Unspecified asthma with (acute) exacerbation (principal); K21.9 Gastro-esophageal reflux disease without esophagitis; F17.200 Nicotine dependence, unspecified, uncomplicated; Z79.51 Long term (current) use of inhaled steroids; Z79.899 Other long term (current) drug therapy
CPT/HCPCS: 94640; 99284

== ENCOUNTER 2024-08-24 20:20 | Emergency (ER) | payer OTHER | END 2024-08-24 23:32 | disposition home or self-care (01) | LOC: ED 20:20 | DX: J45.909 Unspecified asthma, uncomplicated (principal); K21.9 Gastro-esophageal reflux disease without esophagitis; F17.200 Nicotine dependence, unspecified, uncomplicated; Z79.899 Other long term (current) drug therapy ==

== ENCOUNTER 2024-10-22 10:12 | Emergency (ER) | payer OTHER ==
[~2024-10-22] VITALS: Ht 177.8 cm; Wt 103.8 kg
[~2024-10-22 10:12] MED LIST changes: +DUPIXENT P300 MG/2 M SQ; +OMEPRAZOLE20 MG PO
--- OUTSIDE RECORDS SUMMARY | 2024-10-22 10:22 | XMS ---
PreManage Notification: MARIA GUADALUPE NEVAREZ Security Switchboard Operator Events No recent Security Events currently on file CRITERIA MET - Group Notification CARE PROVIDERS -, [facility] Dentist: Orange Picking Supervisor Current [place] PHONE: [phone] TREMAYNE GORE Physician Management Architect Current PHONE: [phone] Kendall has no Care Guidelines for this patient. ESean VISIT COUNT (12 MO.) Stevie Burgess M.C. TOTAL 10 NOTE: Visits indicate total known visits. ED/UCC VISIT TRACKING (12 MO.) 10/22/2024 10:12 [facility] TYPE: Emergency COMPLAINT: - SHORTNESS OF BREATH 08/24/2024 20:20 [facility] TYPE: Emergency COMPLAINT: - DIFFICULTY BREATHING DIAGNOSES: - Gastro-esophageal reflux disease without esophagitis - Nicotine dependence, unspecified, uncomplicated - Other fdc (current) drug therapy - Shortness of breath - Unspecified asthma, uncomplicated 07/16/2024 20:25 [facility] TYPE: Emergency COMPLAINT: - TROUBLE BREATHING DIAGNOSES: - Gastro-esophageal reflux disease without esophagitis - manager long term care (current) use of inhaled steroids - Nicotine dependence, unspecified, uncomplicated - Other laborer marine terminal (current) drug therapy - Shortness of breath - Unspecified asthma with (acute) exacerbation 07/04/2024 06:31 [facility] TYPE: Emergency [...] the skin and subcutaneous tissue, unspecified - manager long term care (current) use of inhaled steroids - prison (current) use of systemic steroids - Nicotine dependence, unspecified, uncomplicated - Other laborer marine terminal (current) drug therapy - Rash and other nonspecific skin eruption - Unspecified asthma with (acute) exacerbation 12/16/2023 23:39 [facility] OR TYPE: Emergency DIAGNOSES: - Mild intermittent asthma with (acute) exacerbation - Shortness of Breath - SOB 12/01/2023 14:43 [facility] TYPE: Emergency DIAGNOSES: - Unspecified asthma with (acute) exacerbation - asthma - Shortness of Breath INPATIENT VISIT TRACKING [...] - Nicotine dependence, cigarettes, uncomplicated - Other laborer marine terminal (current) drug therapy - Other fdc (current) drug therapy - Psoriasis, unspecified - Psoriasis, unspecified - Unspecified asthma, uncomplicated 01/18/2024 02:58 [facility] TYPE: Internal Medicine DIAGNOSES: 07265. Unspecified asthma with (acute) exacerbation 27023. asthma exacerbation 00719. Unspecified asthma, uncomplicated 01/16/2024 12:44 [facility] TYPE: Medical Surgical COMPLAINT: - ASTHMA EXAERBATION DIAGNOSES: - Acquired absence of other specified parts of digestive tract - prison (current) use of inhaled steroids - manager long term care (current) use of systemic steroids - Nicotine dependence, cigarettes, uncomplicated - Psoriasis, unspecified - Unspecified asthma with (acute) exacerbation 01/10/2024 21:30 [facility] TYPE: Medical Surgical COMPLAINT: - ASTHMA EXACERBATION DIAGNOSES: - Acquired absence of other specified parts of digestive tract - Allergic rhinitis, unspecified - prison (current) use of antibiotics - Nicotine dependence, cigarettes, uncomplicated - Other laborer marine terminal (current) drug therapy - Psoriasis, unspecified - Unspecified asthma with (acute) exacerbation 12/01/2023 14:43 [facility] TYPE: Medical Surgical DIAGNOSES: - Unspecified asthma with (acute) exacerbation [id number]
[2024-10-22] MEDS ORDERED: ALBUTEROL/IPRATROPIUM 3 ML NEB ONE (10:28)
[2024-10-22] MEDS ORDERED: TRELEGY ELLIPT1 EAC1 IH (10:29)
[2024-10-22] MEDS ORDERED: TEZSPIRE210 MG/1.1 SQ (10:29)
[2024-10-22 10:44] LABS: BASOPHILS 0.8 % (0.2-1.2); EOSINOPHILS 1.1 % (0.8-7.0); LYMPHOCYTES 27.3 % (21.8-53.1); MCH 28.1 PG (25.7-32.2); MCHC 32.2 g/dL (32.3-36.5); MCV 87.1 fL (79.0-92.2); MONOCYTES 9.2 % (5.3-12.2); NEUTROPHILS 60.7 % (34.0-67.9); RBC 5.27 M/uL (4.63-6.08)
[2024-10-22] MEDS ORDERED: ALBUTEROL/IPRATROPIUM 3 ML NEB INH PRN (10:45)
[2024-10-22 11:01] LABS: ALT (SGPT) 42.0 U/L (14-59); AST (SGOT) 23.0 U/L (15-37); GLOMERULAR FILTRATION RATE,EST 87.0 mL/min (>60); PROTEIN, TOTAL 7.7 g/dL (6.4-8.2); UREA NITROGEN 18.0 mg/dL (7-18)
[2024-10-22] MEDS ORDERED: PREDNISONE20 MG PO (11:55)
[2024-10-22] MEDS ORDERED: predniSONE 20 MG TAB PO ONE (12:00)
[2024-10-22] MEDS ORDERED: ALBUTEROL SULFATE 0.5% 2.5 MG/0.5 ML VIAL INH ONE (12:00)
[2024-10-22] MEDS ORDERED: IPRATROPIUM BROMIDE 2.5 ML VIAL INH ONE (12:00)
[2024-10-22] MEDS ORDERED: BUDESONIDE 0.5 MG/2 ML VIAL ONE (12:06)
[2024-10-22 12:10] VITALS: BP 120/83
[2024-10-22] MEDS ORDERED: BUDESONIDE 0.5 MG/2 ML VIAL INH ONE (12:15)
--- NOTE | 2024-10-23 10:51 | EKG ---
[facility] [address] [facility] [place] [address] Signed Normal sinus rhythm Rightward axis Borderline ECG When compared with ECG of 24-AUG-2024 20:43, No significant change was found Confirmed by Freddie Aguilar DO ([id number]) on 10/23/2024 10:50:43 AM Electronically Signed By: FREDDIE AGUILAR DO 10/23/24 1051 PATIENT NAME: ROQUEVERENICE STILESGreg BARRETT Electrocardiogram DATE OF : 89 PHYSICIAN: FREDDIE AGUILAR DO REPORT #: [id number] REPORT IS CONFIDENTIAL AND NOT TO BE RELEASED WITHOUT AUTHORIZATION
== END 2024-10-22 13:13 | disposition home or self-care (01) ==
LOC: ED 10:12
PROVIDERS: Emergency Medicine
DX: J45.901 Unspecified asthma with (acute) exacerbation (principal); F17.200 Nicotine dependence, unspecified, uncomplicated; Z77.120 Contact with and (suspected) exposure to mold (toxic); Z79.899 Other long term (current) drug therapy
CPT/HCPCS: 36415; 71045; 80053; 83735; 84484; 85025; 93005; 93010; 94640; 99285-25; J7512

== ENCOUNTER 2025-01-11 22:11 | Emergency (ER) | payer OTHER ==
[~2025-01-11] VITALS: Ht 177.8 cm; Wt 109.2 kg
[~2025-01-11 22:11] MED LIST changes: +TEZSPIRE210 MG/1.1 SQ; +TRELEGY ELLIPT1 EAC1 IH
--- OUTSIDE RECORDS SUMMARY | 2025-01-11 22:17 | XMS ---
PreManage Notification: MARIA GUADALUPE NEVAREZ Security Health Education Assistant Events No recent Security Events currently on file CRITERIA MET - Group Notification CARE PROVIDERS -, [facility] Dentist: Import/Export Freight Forwarder Current [place] PHONE: [phone] TREMAYNE GORE Physician Purchasing Contracting Clerk Current PHONE: [phone] Kendall has no Care Guidelines for this patient. ESean VISIT COUNT (12 MO.) Rachel Rice TOTAL 7 NOTE: Visits indicate total known visits. ED/UCC VISIT TRACKING (12 MO.) 01/11/2025 22:12 [facility] TYPE: Emergency COMPLAINT: - ASTHMA ISSUES 10/22/2024 10:12 [facility] TYPE: Emergency COMPLAINT: - SHORTNESS OF BREATH DIAGNOSES: - Contact with and (suspected) exposure to mold (toxic) - Nicotine dependence, unspecified, uncomplicated - Other superintendent container terminal (current) drug therapy - Unspecified asthma with (acute) exacerbation - Unspecified asthma, uncomplicated 08/24/2024 20:20 [facility] TYPE: Emergency COMPLAINT: - DIFFICULTY BREATHING DIAGNOSES: - Gastro-esophageal reflux disease without esophagitis - Nicotine dependence, unspecified, uncomplicated - Other superintendent container terminal (current) drug therapy - Shortness of breath - Unspecified asthma, uncomplicated 07/16/2024 20:25 [facility] TYPE: Emergency COMPLAINT: - TROUBLE BREATHING DIAGNOSES: - Gastro-esophageal reflux disease without esophagitis - USP (current) use of inhaled steroids - Nicotine dependence, unspecified, uncomplicated - Other superintendent container terminal (current) drug therapy - Shortness of [...] Mc OR TYPE: Emergency COMPLAINT: - SOB INPATIENT VISIT TRACKING (12 MO.) 07/10/2024 12:00 [...] - Nicotine dependence, cigarettes, uncomplicated - Other fpc (current) drug therapy - Other superintendent container terminal (current) drug therapy - Psoriasis, unspecified - Psoriasis, unspecified - Unspecified asthma, uncomplicated 01/18/2024 02:58 [facility] TYPE: Internal Medicine DIAGNOSES: 44074. Unspecified asthma with (acute) exacerbation 02551. asthma exacerbation 55523. Unspecified asthma, uncomplicated 01/16/2024 12:44 [facility] TYPE: Medical Surgical COMPLAINT: - ASTHMA EXAERBATION DIAGNOSES: - Acquired absence of other specified parts of digestive tract - oil heaterman (current) use of inhaled steroids - oil heaterman (current) use of systemic steroids - Nicotine dependence, cigarettes, uncomplicated - Psoriasis, unspecified - Unspecified asthma with (acute) exacerbation [email or web address]
[2025-01-11] MEDS ORDERED: BUDESONIDE 0.5 MG/2 ML VIAL INH ONE (22:30)
[2025-01-11] MEDS ORDERED: ALBUTEROL/IPRATROPIUM 3 ML NEB INH ONE (22:30)
[2025-01-11] MEDS ORDERED: ALBUTEROL SULFATE 0.5% 2.5 MG/0.5 ML VIAL INH ONE (22:30)
[2025-01-11] MEDS ORDERED: BUDESONIDE0.5 MG/2 M INH (22:37)
[2025-01-11 23:10] LABS: BASOPHILS 0.6 % (0.2-1.2); EOSINOPHILS 0.5 % (0.8-7.0); LYMPHOCYTES 13.9 % (21.8-53.1); MCH 27.8 PG (25.7-32.2); MCHC 32.3 g/dL (32.3-36.5); MCV 85.8 fL (79.0-92.2); MONOCYTES 7.5 % (5.3-12.2); NEUTROPHILS 77.1 % (34.0-67.9); RBC 5.44 M/uL (4.63-6.08)
[2025-01-11 23:20] LABS: ALT (SGPT) 87.0 U/L (14-59); AST (SGOT) 38.0 U/L (15-37); GLOMERULAR FILTRATION RATE,EST 87.0 mL/min (>60); PROTEIN, TOTAL 8.1 g/dL (6.4-8.2); UREA NITROGEN 14.0 mg/dL (7-18)
[2025-01-12] MEDS ORDERED: REGLAN10 MG PO (00:40)
[2025-01-12] MEDS ORDERED: PROTONIX40 MG PO (00:40)
[2025-01-12] MEDS ORDERED: methylPREDNISolone 4 MG HOME.PACK PO ONE (00:45)
[2025-01-12] MEDS ORDERED: AZITHROMYCIN 250 MG HOME.PACK PO ONE (00:45)
[2025-01-12 00:58] VITALS: BP 146/98
--- NOTE | 2025-01-12 12:34 | EKG ---
[facility] [address] [facility] [place] [address] Signed Sinus tachycardia Rightward axis Borderline ECG When compared with ECG of 22-OCT-2024 10:18, No significant change was found Confirmed by NETTIE NYE MD ([id number]) on 01/12/2025 12:33:44 PM Electronically Signed By: NETTIE NYE 01/12/25 1234 PATIENT NAME: MARIA GUADALUPE NEVAREZ NENA Electrocardiogram DATE OF : 89 PHYSICIAN: NETTIE NYE REPORT #: [id number] REPORT IS CONFIDENTIAL AND NOT TO BE RELEASED WITHOUT AUTHORIZATION
== END 2025-01-12 00:58 | disposition home or self-care (01) ==
LOC: ED 22:11
PROVIDERS: Family Medicine
DX: J45.901 Unspecified asthma with (acute) exacerbation (principal); Q43.3 Congenital malformations of intestinal fixation; F17.200 Nicotine dependence, unspecified, uncomplicated; Z79.899 Other long term (current) drug therapy
CPT/HCPCS: 36415; 71045; 74177; 80053; 82803; 84484; 85025; 93005; 93010; 94644; 96374; 99285-25; J2919; Q9967

== ENCOUNTER 2025-01-28 12:55 | Emergency (ER) | payer OTHER ==
[~2025-01-28] VITALS: Ht 177.8 cm; Wt 109.5 kg
[~2025-01-28 12:55] MED LIST changes: +BUDESONIDE0.5 MG/2 M INH; +PROTONIX40 MG PO; +REGLAN10 MG PO
--- OUTSIDE RECORDS SUMMARY | 2025-01-28 13:02 | XMS ---
PreManage Notification: MARIA GUADALUPE NEVAREZ Security Waistline Joiner Events No recent Security Events currently on file CRITERIA MET - Group Notification - [facility] - 2 Visits in 30 Days CARE PROVIDERS -, [facility] Dentist: Financial Health Counselor Current Home PHONE: [phone] [facility] Clinic/Center: [facility] Current FAMILY PHONE: [phone] Kendall has no Care Guidelines for this patient. EJanelDJanel VISIT COUNT (12 MO.) [address] [place] [address] TOTAL 7 NOTE: Visits indicate total known visits. ED/UCC VISIT TRACKING (12 MO.) 01/28/2025 12:[address] [facility] [place] TYPE: Emergency COMPLAINT: - SHORTNESS OF BREATH 01/11/2025 22:[address] [facility] TYPE: Emergency COMPLAINT: - ASTHMA ISSUES DIAGNOSES: - Congenital malformations of intestinal fixation - Nicotine dependence, unspecified, uncomplicated - Other intermediate (current) drug therapy - Shortness of breath - Unspecified asthma with (acute) exacerbation 10/22/2024 10:12 [facility] TYPE: Emergency COMPLAINT: - SHORTNESS OF BREATH DIAGNOSES: - Contact with and (suspected) exposure to mold (toxic) - Nicotine dependence, unspecified, uncomplicated - Other intermediate (current) drug therapy - Unspecified asthma with (acute) exacerbation - Unspecified asthma, uncomplicated 08/24/2024 20:20 [facility] TYPE: Emergency COMPLAINT: - DIFFICULTY BREATHING DIAGNOSES: - Gastro-esophageal reflux disease without esophagitis - Nicotine dependence, unspecified, uncomplicated - Other termite control servicer (current) drug therapy - Shortness of breath - Unspecified asthma, uncomplicated 07/16/2024 20:25 [facility] [place] TYPE: Emergency COMPLAINT: - TROUBLE BREATHING DIAGNOSES: - Gastro-esophageal reflux disease without esophagitis - longterm (current) use of inhaled steroids - Nicotine dependence, unspecified, uncomplicated - Other termite control servicer (current) drug therapy - Shortness of breath - Unspecified asthma with (acute) exacerbation 07/04/2024 06:31 [facility] [place] TYPE: Emergency COMPLAINT: - DIFFICULTY BREATHING DIAGNOSES: - Nicotine dependence, unspecified, uncomplicated - Shortness of breath - Unspecified asthma with (acute) exacerbation 06/19/2024 19:[address] [facility] [place] [facility] [place] TYPE: Emergency COMPLAINT: - DENTAL PAIN/TROUBLE BREATHING DIAGNOSES: - Nicotine dependence, unspecified, uncomplicated - Shortness of breath - Unspecified asthma with (acute) exacerbation INPATIENT VISIT TRACKING (12 MO.) 07/10/2024 12:[address] [facility] [place] [facility] [place] TYPE: Medical Surgical COMPLAINT: - ASTHMA [...] Nicotine dependence, cigarettes, uncomplicated - Other intermediate (current) drug therapy - Other intermediate (current) drug therapy - Psoriasis, unspecified - Psoriasis, unspecified - Unspecified asthma, uncomplicated [id number]
[2025-01-28 13:39] VITALS: BP 154/106
--- NOTE | 2025-01-29 | EKG ---
[facility] [address] [facility] [place] [address] Signed Normal sinus rhythm Normal ECG When compared with ECG of 11-JAN-2025 22:46, No significant change was found Confirmed by Grace Flores MD () on 01/29/2025 12:00:11 AM Electronically Signed By: GRACE FLORES MD 01/29/25 0000 PATIENT NAME: MARIA GUADALUPE NEVAREZ NENA Electrocardiogram DATE OF : 89 PHYSICIAN: GRACE FLORES MD REPORT #: [id number] REPORT IS CONFIDENTIAL AND NOT TO BE RELEASED WITHOUT AUTHORIZATION
== END 2025-01-28 13:39 | disposition home or self-care (01) ==
LOC: ED 12:55
DX: R00.2 Palpitations (principal); J45.909 Unspecified asthma, uncomplicated; F17.200 Nicotine dependence, unspecified, uncomplicated; Z79.52 Long term (current) use of systemic steroids; Z79.899 Other long term (current) drug therapy
CPT/HCPCS: 93005; 93010; 99284